=== PATIENT | male | born 1965 | race Caucasian/White ===

== ENCOUNTER 2017-05-06 09:09 | Day surgery (SDC) | payer BC ==
[~2017-05-06 09:09] MED LIST: ACETAMINOPHEN 1,000 MG/100 ML BTL IV ONE
[2017-05-06] MEDS ORDERED: LIDOCAINE 2% MDV (20MG/ML) 20ML VIAL IV ONE (09:10)
[2017-05-06] MEDS ORDERED: SEVOFLURANE 250 ML INH ONE (09:10)
[2017-05-06] MEDS ORDERED: ONDANSETRON HCL IV 4 MG/2 ML VIAL IVP ONE (09:10)
[2017-05-06] MEDS ORDERED: KETOROLAC 30 MG/ML VIAL IVP ONE (09:10)
[2017-05-06] MEDS ORDERED: FENTANYL PF 100MCG/2ML VIAL IV ONE (09:10)
[2017-05-06] MEDS ORDERED: MIDAZOLAM HCL 2MG/2ML VIAL IV ONE (09:10)
[2017-05-06] MEDS ORDERED: PROPOFOL 10 MG/ML VIAL IV ONE (09:10)
--- NOTE | 2017-05-07 12:40 | Operative Note ---
DATE OF SURGERY: 05/06/2017 Surgeon: Leo Khan DO PREOPERATIVE DIAGNOSIS: Torn medial meniscus of the right knee. POSTOPERATIVE DIAGNOSIS: Torn medial meniscus of the right knee. OPERATION: Arthroscopic partial medial meniscectomy, right knee. DESCRIPTION OF PROCEDURE: This 51-year-old male was taken to the operating room and placed in the supine position on the operating room table. General anesthesia was induced. The right lower extremity was elevated, exsanguinated, and the tourniquet inflated to 300 mmHg. Arthroscopic knee snow applied. Right knee prepped with Hibiclens and draped in the usual sterile fashion. An inferolateral portion was established for the 4 mm arthroscope and initial evaluation of the joint demonstrated normal appearance of the suprapatellar pouch. The patellofemoral joint appeared normal. Probing through an inferomedial portal did not reveal any gross articular cartilage lesions. The medial compartment was entered and a complex tear of the posterior horn of the medial meniscus was present with both flap and horizontal cleavage components extending from the posterior horn around to approximately the 2-o'clock position. Utilizing the basket forceps and rotating shaver, we resected unstable fragments of the meniscus which had its apex at about the 12-o'clock position and was within approximately 2-3 mm from the meniscosynovial junction. The remainder of the meniscus appeared normal. The articular cartilage is normal. The intracondylar notch was examined and found to be normal. The lateral compartment was entered, probed, and no pathology identified in the lateral compartment. The joint was copiously irrigated, suctioned. The instruments were removed and the portals infiltrated with 0.25% Marcaine with epinephrine. Sterile dressings applied. Tourniquet and knee snow released. The patient taken to the recovery room in satisfactory condition. GROSS PATHOLOGY: This patient demonstrated complex tearing of the posterior horn of the medial meniscus as described. CC: ELIF Monsivais
== END 2017-05-06 12:00 | disposition home or self-care (01) ==
LOC: SUR 09:09
PROVIDERS: ATTEND Orthopaedic Surgery
DX: M23.221 Derangement of posterior horn of medial meniscus due to old tear or injury, right knee (principal); I10 Essential (primary) hypertension
CPT/HCPCS: 29881; 01400; J1885; J2405; J3010